=== PATIENT | male | born 1945 | race Caucasian/White ===

== ENCOUNTER → 2017-07-09 | Outpatient (CLI) | payer OTHER | END | disposition home or self-care (01) | LOC: RAD 12:59 | DX: I25.10 Atherosclerotic heart disease of native coronary artery without angina pectoris (principal); I70.0 Atherosclerosis of aorta; I51.7 Cardiomegaly; Q24.5 Malformation of coronary vessels; R94.39 Abnormal result of other cardiovascular function study; I35.0 Nonrheumatic aortic (valve) stenosis; E11.9 Type 2 diabetes mellitus without complications; I10 Essential (primary) hypertension | CPT/HCPCS: 75574 ==

== ENCOUNTER 2017-11-04 13:28 | Emergency (ER) | payer OTHER ==
[~2017-11-04] VITALS: Ht 182.9 cm; Wt 90.7 kg
[2017-11-04 16:22] VITALS: BP 134/81
== END 2017-11-04 16:32 | disposition home or self-care (01) ==
LOC: EME 13:28
PROC: 0H98XZZ Drainage of Buttock Skin, External Approach (ICD-10-PCS; principal; 2017-11-04)
DX: L02.31 Cutaneous abscess of buttock (principal); B95.61 Methicillin susceptible Staphylococcus aureus infection as the cause of diseases classified elsewhere; E11.9 Type 2 diabetes mellitus without complications
CPT/HCPCS: 87147; 87205; 99281; 99284; J2270